=== PATIENT | female | born 1925 | race Caucasian/White ===

== ENCOUNTER → 2016-05-15 | Outpatient (REF) | payer MEDICARE, BC ==
[~2016-05-15] MED LIST: CALC25TA PO; CARV12.5 PO; CLOP75TA2 PO; COLA100C PO; FERG1TAB PO; FERR324T2 PO; FERR32TA PO; FURO40TA2 PO; HEPA500020 SQ; LISI-538 PO; LISI10TA4 PO; MAPA325T2 PO; METO5TA PO; MILKSUS PO; NORCOTAB PO; PANT40TA2 PO; PEG1POW PO; POTA10CA PO; POTA20TA PO; PRAV40TA2 PO; PROM25AM IV; PROT1TAB2 PO; SUCR1SS PO; SUCR1TA PO; TRAM50TA2 PO; TYLE325T5 PO; VITA500C24 PO; VITA500T88 PO
[2016-05-15 18:18] LABS: ALBUMIN/GLOBULIN RATIO 1.14 (1.00-1.93); BILIRUBIN,TOTAL 0.5 MG/DL (0.2-1.0); CALCIUM LEVEL 9.4 MG/DL (8.8-10.2); CREATININE FOR GFR 1.07 MG/DL (0.55-1.02); GLOMERULAR FILTRATION RATE 51.4 (>32); POTASSIUM SERUM 4.2 MEQ/L (3.5-5.1); TOTAL PROTEIN 7.5 GM/DL (6.4-8.2)
[2016-05-15 19:12] LABS: MEAN CORPUSCULAR HGB CONC 31.8 g/dl (32.0-36.5); MEAN CORPUSCULAR VOLUME 97.3 fl (80.0-96.0); RED CELL DISTRIBUTION WIDTH 12.3 % (11.5-14.5); WHITE BLOOD COUNT 7.2 K/mm3 (4.0-10.0)
== END ==
LOC: M LAB REF 15:35
PROVIDERS: ATTEND Internal Medicine
DX: I10 Essential (primary) hypertension (principal); D64.9 Anemia, unspecified